=== PATIENT | female | born 1945 | race African-American/Black ===

== ENCOUNTER 2017-03-07 10:14 | Day surgery (SDC) | payer BC ==
[2017-03-06 13:46] VITALS: BMI 19.1
--- NOTE | 2017-03-07 09:32 | HP ---
Satellite [facility] - Chief Complaint Chief Complaint: right knee pain - Current Medications Current Medications: Home Medications Medication Instructions Recorded Atorvastatin Ca [Lipitor] 60 mg PO HS 03/06/17 Levothyroxine [Synthroid -] 75 mcg PO DAILY 03/06/17 Hydrocodone/Acetaminophen [[place] 1 - 2 each PO Q6H #40 tablet MDD 8 03/07/17 5-325 Tablet] [facility]ellite Physical Exam - Physical Examination General Appearance: Well Nourished, Well Developed, Alert & Oriented x3 ENT: Clear Lung: Normal air movement Heart: Regular rate & rhythm Extremities: Other (right knee- +swelling, + ttp, decr rom, + mcmurrays, + apleys, nvi MRI + lmt) Neurological: Intact, Alert, Oriented Satellite Impression/Plan - Impression/Plan Impression: right knee lmt, connor Operative Procedure: right knee arthroscopy Date to be Performed: 03/07/17
[2017-03-07] MEDS ORDERED: BUPIVACAINE HCL/PF 0.5% (5MG/ML) 10 ML VIAL ONE (12:36)
[2017-03-07] MEDS ORDERED: ceFAZolin SODIUM 1 GM VIAL ONE (13:03)
[2017-03-07] MEDS ORDERED: ceFAZolin SODIUM 1 GM VIAL IVPB ONE (13:10)
[2017-03-07] MEDS ORDERED: BUPIVACAINE HCL/PF 0.5% (5MG/ML) 10 ML VIAL IJ ONE (13:47)
--- NOTE | 2017-03-07 13:47 | OP ---
Operative Note - Note: Operative Date: 03/07/17 Pre-Operative Diagnosis: right knee Lateral meniscus tear, OA Operation: right knee arthroscopy, partial lateral meniscectomy, debridement chondroplasty Findings: moderate tricompartmental OA Post-Operative Diagnosis: Same as Pre-op Surgeon: Indio Orta Anesthesiologist/AQUATIC INSTRUCTOR: Shahid Lopez Anesthesia: General, Local Specimens Removed: shavings Estimated Blood Loss (mls): 0 Blood Volume Replaced (mls): 0 Fluid Volume Replaced (mls): 500 Operative Report Dictated: Yes
[2017-03-07] MEDS ORDERED: ONDANSETRON 4 MG/2 ML VIAL IVPUSH PRN (14:22)
[2017-03-07] MEDS ORDERED: LACTATED RINGERS SOLUTION 1,000 ML IV SCH (14:30)
[2017-03-07] MEDS ORDERED: ONDANSETRON 4 MG/2 ML VIAL ONE (17:06)
[2017-03-07 17:33] VITALS: PULSE 68
[2017-03-07 17:51] VITALS: BP 120/70; TEMP 97.8
--- NOTE | 2017-03-07 19:24 | OP ---
DATE OF OPERATION: DATE OF DICTATION: 03/07/2017 PREOPERATIVE DIAGNOSIS: Right knee lateral meniscus tear and osteoarthritis. POSTOPERATIVE DIAGNOSIS: Right knee lateral meniscus tear and osteoarthritis. PROCEDURE: Right knee arthroscopy, partial lateral meniscectomy, debridement chondroplasty. SURGEON: Bonny Salazar M.D. BARK FITTER: None. ANESTHESIOLOGIST: Steffen Esteban M.D. ANESTHESIA: LMA anesthesia, intraarticular injection of 20 mL of 0.5% Marcaine. DRAINS: None. COMPLICATIONS: None. SPECIMEN: Arthroscopic shavings. BLOOD LOSS: None. BLOOD GIVEN: None. INDICATION: The patient is a 71-year-old female with preoperative diagnosis of a right knee lateral meniscus tear and osteoarthritis. After understanding the potential risks, complications, alternatives, benefits to surgery versus nonsurgical treatment, the patient elected to pursue this procedure. DESCRIPTION OF PROCEDURE: Patient brought to operating room, peripheral IV placed, IV sedation given, 1 g of IV Ancef was given, LMA anesthesia was induced. Tourniquet was applied to right thigh with ample padding throughout. She was placed in the C-clamp leg norris with the Styrofoam ring. The right lower extremity was prepped and draped in sterile fashion, elevated, exsanguinated with Esmarch bandage, tourniquet inflated to 250 mmHg. The superior portal was established, a medial portal was established, and under direct visualization a lateral port was established. A diagnostic arthroscopy was performed. The medial compartment seemed to have frayed. Medial meniscus was debrided gently with a curved shaver. The medial compartment did have osteoarthritis. The patient had grade 1 changes of the medial tibial plateau and grade 2/grade 3 changes of the weightbearing portion of the medial femoral condyle. Intracondylar notch looked good, except the patient had a lot of synovitis. This was removed with the shaver. In the lateral compartment, patient seemed to have a complex tear of the body, posterior horn, and anterior horn, and the lateral meniscus was debrided with a straight basket forceps to the left biter and the curved shaver. Photographs were taken. The patient did unfortunately have a grade 4 osteoarthritis of the lateral femoral condyle, grade 1 changes to the lateral tibial plateau. The area in the lateral femoral condyle was gently debrided with the shaver. Next our attention turned to the patellofemoral joint, where the patient had an area about the size of a cyril of grade 4 osteoarthritis. This was debrided with the shaver. Patient had mild chondromalacia on the undersurface of the patella, but from this view, I can see that the top portion of the medial femoral condyle had much more significant grade 4 osteoarthritis. The area was gently debrided. The area was copiously irrigated and washed out. All excess saline removed. All instrumentation removed. Although the patient's arthritis was not terrible in all locations because the patient did have at least moderate arthritic changes in all compartments, she is not a candidate for the Makoplasty, only for the total knee replacement. The arthroscopy portals were closed with 3-0 nylon sutures. The area was washed and dried, covered with Xeroform, 20 mL of 0.5% Marcaine was injected into the joint and covered with 4x4, gauze, Webril, and Hayden bandage; tourniquet was taken down after total tourniquet time of about 20 minutes. There were no complications during the case. The patient tolerated the procedure quite well and was brought to the ambulatory recovery room in stable condition. BONNY SALAZAR M.D. [id number]
--- NOTE | 2017-03-09 14:12 | PATH ---
Surgical Pathology Report Patient Name: LA MEYERS [facility]. Rec. #: [id number] /Age/Gender: 1945 (Age: 71) / F Account: [id number] Location: [facility] Taken: 03/08/2017 Received: 03/08/2017 Reported: 03/09/2017 Physicians: Indio Orta M.D. Specimen(s) Received SHAVINGS Clinical History Right knee internal derangement Final Diagnosis SOFT TISSUE, RIGHT KNEE, ARTHROSCOPIC SHAVINGS: SYNOVIUM WITH MILD CHRONIC INFLAMMATION, FIBROCARTILAGE WITH MYXOHYALINE DEGENERATION. Electronically Signed Hua Yusuf M.D. Gross Description Received in formalin, labeled "right knee shavings" is a 4.0 x 3.5 x 0.4 cm aggregate of turner-yellow soft tissue fragments. A community service representative portion is submitted in one cassette. /03/08/2017 saudi03/08/2017
== END 2017-03-07 17:52 | disposition home or self-care (01) ==
LOC: JASU-SURG 10:14
PROVIDERS: ATTEND Orthopaedic Surgery
PROC: 0SBC4ZZ Excision of Right Knee Joint, Percutaneous Endoscopic Approach (ICD-10-PCS; principal; 2017-03-07 12:00)
DX: M23.200 Derangement of unspecified lateral meniscus due to old tear or injury, right knee (principal); M17.11 Unilateral primary osteoarthritis, right knee
CPT/HCPCS: 88304-TC; 94760

== ENCOUNTER 2017-04-14 12:18 | Emergency (ER) | payer BC, OTHER ==
[2017-04-14 12:23] VITALS: BP 161/84; PULSE 83; BMI 19.1
[2017-04-14 13:00] VITALS: TEMP 97.3
[2017-04-14] MEDS ORDERED: OXYCODONE/APAP 5/325MG COMBO TABLET PO ONE (13:00)
[2017-04-14] MEDS ORDERED: RANITIDINE HCL 150 MG TABLET (FP) PO ONE (13:04)
--- NOTE | 2017-04-14 13:04 | PDOC ---
History of Present Illness - General Chief Complaint: Pain Stated Complaint: POST-OP/ RT KNEE PAIN Time Seen by Provider: 04/14/17 12:33 - History of Present Illness Initial Comments: 04/14/17 12:59 CHIEF COMPLAINT: Pain to R knee HISTORY OF PRESENT ILLNESS: 71 yo F with hx of HLD and hypothyroidism, with recent knee surgery (03/07/17) presents to fast track with post op pain to knee. Patient states that her pain prior to the surgery never resolved despite the operation and now she is having pain radiating up to her R hip and down to her R ankle from the knee. She states that she was taking the pain medication given to her by her surgeon for a couple weeks, which did resolve the pain, but "was out today and started to feel really bad pain" and came to the ER. She denies any fever, chills, nausea, vomiting, diarrhea, shortness of breath, palpitations, swelling of the legs, or pain to her calf. PAST MEDICAL HISTORY: Denies past medical history FAMILY HISTORY: Denies SOCIAL HISTORY: Denies tobacco, alcohol, illicit drug use. SURGICAL HISTORY: Denies ALLERGIES: codeine REVIEW OF SYSTEMS General/Constitutional: Denies fever or chills. Denies weakness, weight change. HEENT: Denies change in vision. Denies ear pain or discharge. Denies sore throat. Cardiovascular: Denies chest pain or shortness of breath. Respiratory: Denies cough, wheezing, or hemoptysis. Gastrointestinal: Denies nausea, vomiting, diarrhea or constipation. Genitourinary: Denies dysuria, frequency, or change in urination. Musculoskeletal: Pain to right leg, radiating to hip and ankle. Denies joint or muscle swelling or pain. Denies neck or back pain. Skin: Denies rash or easy bruising. PHYSICAL EXAM General Appearance: Well-appearing, appropriately dressed. No apparent distress. HEENT: EOMI, PERRLA. No conjunctival pallor. No photophobia, scleral icterus. Neck: Supple. Trachea midline. No tenderness, rigidity, carotid bruit, stridor , lymphadenopathy, or thyromegaly. Respiratory/Chest: Lungs CTAB. No shortness of breath, chest tenderness, respiratory distress, accessory muscle use. No crackles, rales, rhonchi, stridor , wheezing, dullness Cardiovascular: RRR. S1, S2. Vascular Pulses: Dorsalis-Pedis (R): 2+, Dorsalis-Pedis (L): 2+ Musculoskeletal/Extremities: Full ROM to R knee, no swelling, erythema, warmth. No calf tenderness. Normal inspection. FROM of all other extremities, normal capillary refill. Pelvis Stable. No CVA tenderness. No tenderness to extremities, pedal edema, swelling, erythema or deformity. Integumentary: Appropriate color, dry, warm. No cyanosis, erythema, jaundice or rash Neurologic: bobbin cleaner II-XII intact. Fully oriented, alert. Appropriate mood/affect. Motor strength 5/5. No appreciable EOM palsy, facial droop or sensory deficit. Past History - Past Medical History Allergies/Adverse Reactions: Allergies Allergy/AdvReac Type Severity Reaction Status Date / Time codeine Allergy Severe Hives Verified 04/14/17 12:23 Home Medications: Ambulatory Orders Atorvastatin Ca [Lipitor] 60 mg PO HS 03/06/17 Levothyroxine [Synthroid -] 75 mcg PO DAILY 03/06/17 Acetaminophen [Tylenol -] 1,000 mg PO Q6H 04/14/17 Anemia: No Asthma: No Cancer: No Cardiac Disorders: No CVA: No COPD: No CHF: No Dementia: No Diabetes: No GI Disorders: No Disorders: No HTN: No Hypercholesterolemia: Yes Liver Disease: No Seizures: No Thyroid Disease: No - Surgical History Neurologic Surgery: Yes (BACK SX, R KNEE SX) - Psycho/Social/Smoking Cessation Hx Anxiety: No Suicidal Ideation: No Smoking History: Never smoked Hx Alcohol Use: No Drug/Substance Use Hx: No Substance Use Type: None *Physical Exam - Vital Signs Last Vital Signs Temp Pulse Resp BP Pulse Ox 973 F H 83 20 161/84 99 04/14/17 12:19 04/14/17 12:19 04/14/17 12:19 04/14/17 12:19 04/14/17 12:19 Medical Decision Making - Medical Decision Making 04/14/17 13:10 71 yo F with hx of HLD and hypothyroidism, with recent knee surgery (03/07/17) presents to fast track with post op pain to knee. DVT and infection considered but unlikely given stable vital signs and no clinical signs of infection or DVT. -Percocet, zantac Patient reassessed; states the pain is feeling better at this time and she will follow up with orthopedics on Sunday. Advised patient of signs and symptoms for return to ER; patient verbalized understanding and agrees to plan. *DC/Admit/Observation/Transfer Diagnosis at time of Disposition: Post-op pain - Discharge Dispostion Disposition: HOME Condition at time of disposition: Stable Admit: No - Referrals Referrals: Adelaide Ren MD [Primary Care Provider] - Indio Orta MD [Staff Physician] - - Patient Instructions Printed Discharge Instructions: DI for Knee Pain, DI for Knee Arthroscopy Additional Instructions: Please follow up with Dr. Orta on Sunday as discussed. Continue taking the pain medication that he prescribed for you to help manage your post operative pain. If you experience any fever, chills, vomiting, diarrhea, or if you develop redness, swelling, or warmth to the site of your surgery, please return to the ER immediately. - Post Discharge Activity
[2017-04-14] MEDS ORDERED: OXYCODONE/APAP 5/325MG COMBO TABLET ONE (13:10)
[2017-04-14] MEDS ORDERED: RANITIDINE HCL 150 MG TABLET (FP) ONE (13:10)
== END 2017-04-14 13:27 | disposition home or self-care (01) ==
LOC: JERFT 12:18
DX: G89.18 Other acute postprocedural pain (principal); M25.561 Pain in right knee; E78.00 Pure hypercholesterolemia, unspecified; E03.9 Hypothyroidism, unspecified
CPT/HCPCS: 99281-25

== ENCOUNTER 2017-09-25 12:44 | Day surgery (SDC) | payer BC, OTHER ==
[2017-09-13 14:10] VITALS: BMI 19.5
[~2017-09-25 12:44] MED LIST: BUPIVACAINE HCL/PF 0.5% (5MG/ML) 10 ML VIAL IJ ONE
--- NOTE | 2017-09-25 13:09 | HP ---
Satellite [facility] - Chief Complaint Chief Complaint: right knee pain - Past Medical History Allergies/Adverse Reactions: Allergies Allergy/AdvReac Type Severity Reaction Status Date / Time codeine Allergy Severe Hives Verified 04/14/17 12:23 - Current Medications Current Medications: Home Medications Medication Instructions Recorded Atorvastatin Ca [Lipitor] 40 mg PO HS 03/06/17 Levothyroxine [Synthroid -] 75 mcg PO DAILY 03/06/17 Acetaminophen [Tylenol -] 1,000 mg PO Q6H PRN 04/14/17 Hydrocodone/Acetaminophen [[place] 1 each PO Q6H PRN #20 tablet MDD 4 09/25/17 5-325 Tablet] [facility] Physical Exam - Physical Examination General Appearance: Well Nourished, Well Developed, Alert & Oriented x3 ENT: Clear Lung: Normal air movement Heart: Regular rate & rhythm Extremities: Other (right knee- + swelling, + ttp, decr rom, + mcmurrays, nvi MRI + mt) Neurological: Intact, Alert, Oriented Satellite Impression/Plan - Impression/Plan Impression: right knee internal derangement Operative Procedure: right knee arthroscopy Date to be Performed: 09/25/17
[2017-09-25] MEDS ORDERED: PROPOFOL 20 ML ONE (14:04)
[2017-09-25] MEDS ORDERED: MIDAZOLAM HCL 2 MG/2 ML SINGLE DOSE VIAL ONE (14:04)
[2017-09-25] MEDS ORDERED: ceFAZolin SODIUM 1 GM VIAL ONE (15:06)
[2017-09-25] MEDS ORDERED: DEXAMETHASONE SOD PHOSPHATE 4 MG/1 ML VIAL ONE (15:14)
[2017-09-25] MEDS ORDERED: KETOROLAC TROMETHAMINE 30 MG/1 ML VIAL ONE (15:35)
[2017-09-25] MEDS ORDERED: BUPIVACAINE HCL/PF 0.5% (5MG/ML) 10 ML VIAL IJ ONE (15:40)
--- NOTE | 2017-09-25 15:46 | OP ---
Operative Note - Note: Operative Date: 09/25/17 Pre-Operative Diagnosis: right knee lateral meniscus tear, OA Operation: right knee arthroscopy, partial lateral meniscectomy, debridemant chondroplasty Post-Operative Diagnosis: Same as Pre-op Surgeon: Indio Orta Anesthesiologist/CYBERATHLETE: Rocío Marlow Anesthesia: General, MAC Specimens Removed: shavings Drains, Volume Out (mls): 0 Blood Volume Replaced (mls): 0 Fluid Volume Replaced (mls): 500 Operative Report Dictated: Yes
[2017-09-25] MEDS ORDERED: oxyCODONE HCL 5 MG TABLET PO PRN (15:52)
[2017-09-25] MEDS ORDERED: ONDANSETRON 4 MG/2 ML VIAL IVPUSH PRN (15:52)
[2017-09-25] MEDS ORDERED: PROMETHAZINE HCL 25 MG/1 ML VIAL IVPB PRN (15:52)
[2017-09-25] MEDS ORDERED: LACTATED RINGERS SOLUTION 1,000 ML IV SCH (16:00)
[2017-09-25 17:36] VITALS: TEMP 97.4
[2017-09-25 18:36] VITALS: BP 130/71; PULSE 78
--- NOTE | 2017-09-26 09:46 | OP ---
DATE OF OPERATION: 09/25/2017 PREOPERATIVE DIAGNOSIS: Right knee pain, lateral meniscal tear, and osteoarthritis. POSTOPERATIVE DIAGNOSIS: Right knee pain, lateral meniscal tear, and osteoarthritis. PROCEDURE: Right knee arthroscopy, partial lateral meniscectomy, and debridement chondroplasty. SURGEON: Indio Orta MD ASSISTANTS: None. CLINICAL MENTAL HEALTH COUNSELOR: , IMPLEMENTATION LEAD ANESTHESIA: LMA anesthesia with 17 mL 0.5% Marcaine intraarticular injection. DRAINS: None. COMPLICATIONS: None. SPECIMENS: Arthroscopic shavings. BLOOD LOSS: None. BLOOD GIVEN: None. FLUID REPLACEMENT: 500 mL. INDICATIONS: This patient is a 71-year-old female with a preoperative diagnosis of right knee pain, lateral meniscal tear, and osteoarthritis. After understanding the potential risks, complications, alternatives, and benefits of surgery versus nonsurgical treatment, the patient elected to undergo this procedure. DESCRIPTION OF PROCEDURE: The patient was brought to the operating room, Peripheral IV placed. IV sedation given. One gram of IV Ancef was given. LMA anesthesia was induced. Right lower extremity was prepped and draped in sterile fashion, elevated, exsanguinated with an Esmarch bandage, and tourniquet inflated to 250 mmHg. A superior lateral portal was established, the lateral portal was established, and an arthroscope was introduced into the joint. Under direct visualization using a spinal needle, a medial portal was established. A probe was entered into the joint. A diagnostic arthroscopy was performed. Patient was seen to have some fraying of the medial meniscus, body, and posterior horn. This was debrided with the curved shaver. Patient had a small area of grade 4 osteoarthritis in the medial femoral condyle that went out in a stellate pattern. There were grade 2 changes on the medial tibial plateau. Intercondylar notch looked good. There was a little bit of synovitis, which was removed. ACL looked good. The lateral compartment had a complex tear of the body of the lateral meniscus. This was debrided with a curved shaver. Patient had similar punctate grade 4 lesion about the size of a nickel in the lateral femoral condyle and cracks with the cartilage going out in a stellate pattern. There were grade 1 changes of the lateral tibial plateau. Photographs were taken before and after of the lateral meniscus debridement. Once this was done, the patellofemoral joint was inspected. The patients undersurface of the patella looked good. The patient had grade 4 changes in the femoral trochlea and surrounding areas of grade 3 changes. This was debrided with the curved shaver. After the debridement chondroplasty, all excess debris was removed. The instrumentation removed. All excess saline removed. Arthroscopic portals were closed with 3-0 nylon sutures. Then, 17 mL of 0.5% Marcaine was introduced into the joint. The area was then washed and dried, covered with Xeroform, 4x4 gauze, Webril, and an Hayden bandage. The tourniquet was taken down after a total tourniquet time of 17 minutes. There were no complications during the case. The patient tolerated the procedure well and was brought to the ambulatory recovery room in stable condition. Leandro [id number]
--- NOTE | 2017-09-27 14:59 | PATH ---
Surgical Pathology Report Patient Name: LA MEYERS Med. Rec. #: [id number] /Age/Gender: 1945 (Age: 71) / F Account: [id number] Location: [facility] Taken: 09/25/2017 Received: 09/26/2017 Reported: 09/27/2017 Physicians: Indio Orta M.D. Specimen(s) Received RIGHT KNEE SHAVINGS Clinical History Right knee pain Final Diagnosis KNEE, RIGHT, ARTHROSCOPIC SHAVING: FIBROCARTILAGE WITH MYXOID DEGENERATIVE CHANGES, ALONG WITH PORTIONS OF SYNOVIUM AND HYALINE CARTILAGE. Electronically Signed Yayo Andrew M.D. Gross Description Received in formalin, labeled "right knee shavings," is a 3.8 x 2.4 x 0.4 cm. aggregate of turner-yellow soft tissue fragments. A sales representative metals portion is submitted in one cassette. /09/26/201709/26/2017
== END 2017-09-25 19:45 | disposition home or self-care (01) ==
LOC: JASU-SURG 12:44
PROVIDERS: ATTEND Orthopaedic Surgery
PROC: 0SBC4ZZ Excision of Right Knee Joint, Percutaneous Endoscopic Approach (ICD-10-PCS; principal; 2017-09-25 14:30)
DX: S83.271A Complex tear of lateral meniscus, current injury, right knee, initial encounter (principal); X58.XXXA Exposure to other specified factors, initial encounter; Y93.9 Activity, unspecified; Y92.9 Unspecified place or not applicable; Y99.9 Unspecified external cause status; M17.11 Unilateral primary osteoarthritis, right knee
CPT/HCPCS: 88304-TC; 94760